=== PATIENT | male | born 1980 | race Two or more races ===

== ENCOUNTER 2022-01-13 11:04 | Emergency (ER) | payer OTHER ==
[~2022-01-13] VITALS: Ht 175.3 cm; Wt 90.7 kg
[~2022-01-13 11:04] MED LIST: CEPH500C2 PO; SULF1TAB44 PO
--- NOTE | 2022-01-13 11:19 | NUR ---
TO ER BED 1. BIB SELF FROM HOME C/O R THIGH AREA PAIN AND SWELLING X 5 DAYS POSSIBLE "INSECT BITE".
[2022-01-13] MEDS ORDERED: LIDOCAINE 1%-EPI 1:100,000 20 ML VIAL ONE (11:20)
[2022-01-13] MEDS ORDERED: CEFTRIAXONE 1 G VIAL ONE (11:28)
[2022-01-13] MEDS ORDERED: SULFAMETH/TRIMETH 800/160 MG 1 UDTAB TABLET ONE (11:29)
[2022-01-13] MEDS ORDERED: SULFAMETH/TRIMETH 800/160 MG 1 UDTAB TABLET PO ONE (11:30)
[2022-01-13] MEDS ORDERED: CEFTRIAXONE 1 G VIAL IM ONE (11:30)
[2022-01-13] MEDS ORDERED: LIDOCAINE /MPF 1% VIAL 5 ML VIAL ONE (11:37)
[2022-01-13] MEDS ORDERED: SULF1TAB48 PO (11:39)
[2022-01-13] MEDS ORDERED: CEPH500C2 PO (11:39)
[2022-01-13] MEDS ORDERED: TRAM50TA2 PO (11:39)
--- NOTE | 2022-01-13 12:08 | NUR ---
I&D DONE, PROVIDED W/ WOUND CARE. D/C HOME W/ PRESCRIPTION FOR ANTIBIOTICS AND ACI. STABLE COCNDITION.
[2022-01-13 12:10] VITALS: BP 132/73
== END 2022-01-13 12:10 | disposition home or self-care (01) ==
LOC: ER 11:10
DX: L02.415 Cutaneous abscess of right lower limb (principal); Z79.899 Other long term (current) drug therapy
CPT/HCPCS: 10060; 96372; 99283; A6403; J0696; J3490 ×2

== ENCOUNTER 2022-12-06 12:06 | Emergency (ER) | payer OTHER ==
[~2022-12-06] VITALS: Ht 175.3 cm; Wt 81.6 kg
[~2022-12-06 12:06] MED LIST changes: +SULF1TAB48 PO; +TRAM50TA2 PO
--- NOTE | 2022-12-06 12:16 | NUR ---
BIB [facility] C/O ABDOMINAL PAIN RADIATING TO BACK SINCE YESTERDAY ASSOC. WITH N/V NURSE AT BED SIDE
[2022-12-06] MEDS ORDERED: IV NS 0.9% 1,000 ML BAG IV ONE (12:30)
[2022-12-06 12:50] LABS: BASOPHILS # (AUTO) 0.1 K/uL (0.0-0.2); BASOPHILS % (AUTO) 0.6 % (0.0-2.0); EOSINOPHILS % (AUTO) 0.2 % (0.0-6.0); HEMATOCRIT 45 % (39-51); HEMOGLOBIN 14.3 g/dL (13.5-17.5); LYMPHOCYTES # (AUTO) 0.7 K/uL (0.8-4.8); MEAN CORPUSCULAR HGB CONC 32 g/dl (31.0-36.0); MEAN CORPUSCULAR VOLUME 85 fL (80-96); MONOCYTES # (AUTO) 0.6 K/uL (0.1-1.30); MONOCYTES % (AUTO) 4.3 % (2.0-12.0); NEUTROPHILS # (AUTO) 12.4 K/uL (1.8-8.9); NEUTROPHILS % (AUTO) 89.9 % (43.0-81.0); PLATELET COUNT (AUTO) 315 K/uL (150-450); WHITE BLOOD COUNT (AUTO) 13.8 K/uL (4.3-11.0)
[2022-12-06 13:06] LABS: CALCIUM, SERUM 8.7 mg/dL (8.5-10.1); CREATININE 0.9 mg/dL (0.6-1.3); POTASSIUM 3.7 mmol/L (3.5-5.1)
[2022-12-06 13:13] LABS: ALBUMIN 3.3 g/dL (3.4-5.0); BILIRUBIN,DIRECT 0.3 mg/dL (0.0-0.2); BILIRUBIN,TOTAL 1.8 mg/dL (0.2-1.0); TOTAL PROTEIN, SERUM 7.7 g/dL (6.4-8.2)
--- NOTE | 2022-12-06 13:40 | NUR ---
ed meléndez, number [phone]
[2022-12-06] MEDS ORDERED: ONDANSETRON HCL/PF 4 MG/2 ML VIAL ONE (13:57)
[2022-12-06] MEDS ORDERED: MORPHINE SULFATE INJ 4 MG/ML DISP.SYRIN ONE (13:57)
[2022-12-06] MEDS ORDERED: ONDANSETRON HCL/PF 4 MG/2 ML VIAL IV ONE (14:00)
[2022-12-06] MEDS ORDERED: MORPHINE SULFATE INJ 2 MG/ML DISP.SYRIN IV ONE (14:00)
--- NOTE | 2022-12-06 15:14 | NUR ---
DR. CORONA SPOKE WITH DR. CHANEY
[2022-12-06] MEDS ORDERED: PIPERACILLIN /TAZOBACTAM 3.375 G in IV D5W 50 ML IV ONE (15:30)
[2022-12-06 15:51] LABS: BILIRUBIN,URINE NEGATIVE (NEGATIVE); COLOR,URINE YELLOW (YELLOW); LEUKOCYTE ESTERASE ,URINE 2+ (NEGATIVE); NITRITE, URINE POSITIVE (NEGATIVE); PH,URINE 7.5 (5.0-8.0); PROTEIN,URINE TRACE mg/dl (NEGATIVE); UGLUCOSE NEGATIVE (NEGATIVE)
[2022-12-06] MEDS ORDERED: ACETAMINOPHEN 325 MG TABLET PO PRN (16:30)
[2022-12-06] MEDS ORDERED: MORPHINE SULFATE INJ 2 MG/ML DISP.SYRIN IV PRN (16:30)
[2022-12-06] MEDS ORDERED: IV D5/0.45 NACL 1,000 ML IV PRN (16:30)
[2022-12-06] MEDS ORDERED: HYDROCODONE/APAP 5/325MG TABLET PO PRN (16:30)
[2022-12-06] MEDS ORDERED: Z GUARD REMEDY 4 OZ OINT TP PRN (16:30)
[2022-12-06] MEDS ORDERED: ONDANSETRON HCL/PF 4 MG/2 ML VIAL IVP PRN (16:30)
[2022-12-06 16:58] LABS: BACTERIA,URINE 3+ /HPF (None Seen); SQUAMOUS EPITHELIAL CELL,UR 0-2 /HPF (None Seen); WBC,URINE 21-50 /HPF (0-3)
[2022-12-06] MEDS ORDERED: PIPERACILLIN /TAZOBACTAM 3.375 G in IV D5W 50 ML IV SCH (18:00)
[2022-12-06 18:13] VITALS: BP 118/65
--- NOTE | 2022-12-06 18:15 | NUR ---
Patient does not wish to proceed with medical care recommended by ( ). Patient given information related to possible complications, up to and including , which could occur as a result of leaving the hospital at this time. Patient verbalizes understanding of risks involved due to leaving against medical advice. Patient has signed AMA form. Addendum: 12/06/22 at 1815 by BANDAR Johnny BELTRAN
[2022-12-07] MEDS ORDERED: PANTOPRAZOLE 40 MG VIAL IV SCH (09:00)
== END 2022-12-06 18:14 | disposition left against medical advice (07) ==
LOC: ER 12:11
DX: K57.32 Diverticulitis of large intestine without perforation or abscess without bleeding (principal); Z53.29 Procedure and treatment not carried out because of patient's decision for other reasons; Z87.19 Personal history of other diseases of the digestive system; Z20.822 Contact with and (suspected) exposure to COVID-19; R16.0 Hepatomegaly, not elsewhere classified; K40.90 Unilateral inguinal hernia, without obstruction or gangrene, not specified as recurrent
CPT/HCPCS: 99291; 74176; 96365; 96375; 96361; 87426; 85025; 80048; 87040 ×2; 87086; 83690; 80076; 81001; 36415; J2270; J2405; J2543; J7060; J7030; C9803